=== PATIENT | male | born 1960 | race Caucasian/White ===

== ENCOUNTER 2022-12-05 18:45 | Emergency (ER) | payer SELFPAY ==
[~2022-12-05] VITALS: Ht 170.2 cm; Wt 75.0 kg
[2022-12-05 19:17] VITALS: BP 0/0; O2SAT 100
[2022-12-05] MEDS ORDERED: CLONAZEPAM 1MG TABLET PO ONE (19:30)
[2022-12-05] MEDS ORDERED: CLON2TAB21 MT (20:28)
[2022-12-05 21:41] VITALS: PULSE 112; RESP 10; TEMP 97.8
== END 2022-12-05 21:48 | disposition home or self-care (01) ==
LOC: ER 18:45
DX: R25.1 Tremor, unspecified (principal); M19.90 Unspecified osteoarthritis, unspecified site; J45.909 Unspecified asthma, uncomplicated; I10 Essential (primary) hypertension; Z98.890 Other specified postprocedural states; Z76.0 Encounter for issue of repeat prescription
CPT/HCPCS: 99283